=== PATIENT | male | born 1965 | race African-American/Black ===

== ENCOUNTER 2018-10-21 17:18 | Inpatient (IN) | payer OTHER ==
[2018-10-21 19:11] VITALS: BMI 24.0
--- NOTE | 2018-10-21 20:35 | HP ---
CIWA Score Nausea/Vomitin Muscle Tremors: 3 Anxiety: 3 Agitation: 3 Paroxysmal Sweats: 2 Orientation: 2-Disoriented Date<2 days Tacttile Disturbances: 0-None Auditory Disturbances: 0-None Visual Disturbances: 0-None Headache: 0-None Present CIWA-Ar Total Score: 16 - Admission Criteria OASAS Guidelines: Admission for Medically Managed Detox: Requires at least one of the followin. CIWA greater than 12 2. Seizures within the past 24 hours 3. Delirium tremens within the past 24 hours 4. Hallucinations within the past 24 hours 5. Acute intervention needed for co occurring medical disorder 6. Acute intervention needed for co occurring psychiatric disorder 7. Severe withdrawal that cannot be handled at a lower level of care (continued vomiting, continued diarrhea, abnormal vital signs) requiring intravenous medication and/or fluids 8. Admission [facility] Chief Complaint: Alcohol withdrawal symptoms Allergies/Adverse Reactions: Allergies Allergy/AdvReac Type Severity Reaction Status Date / Time Penicillins Allergy Severe Hives Verified 10/21/18 20:31 History of Present Illness: 53 years old male with a long history of alcohol dependence is seeking admission to detox. Patient has been in previous detox at [facility] and reports 3 years of sobriety. He has medical history of hypertension, anxiety and depression. He denies suicide attempt and suicidal ideation at this time. This his first admission to [facility] Exam Limitations: No Limitations - Ebola screening Have you traveled outside of the country in the last 21 days: No Have you had contact with anyone from an Ebola affected area: No Have you been sick,other than usual withdrawal symptoms: No Do you have a fever: No - Review of Systems Constitutional: Loss of Appetite, Malaise, Changes in sleep, Weakness EENT: reports: Nose Congestion Respiratory: reports: No Symptoms reported Cardiac: reports: No Symptoms Reported GI: reports: Poor Appetite, Poor Fluid Intake, Vomiting (x 1), Abdominal cramping : reports: No Symptoms Reported Musculoskeletal: reports: Joint Pain, Muscle Pain Integumentary: reports: Dryness, Flushing Neuro: reports: Tingling, Tremors Endocrine: reports: No Symptoms Reported Hematology: reports: No Symptoms Reported Psychiatric: reports: Mood/Affect Appropiate, Anxious, Depressed Other Systems: Reviewed and Negative Patient History - Patient Medical History Hx Anemia: No Hx Asthma: No Hx Chronic Obstructive Pulmonary Disease (COPD): No Hx Cancer: No Hx Cardiac Disorders: No Hx Congestive Heart Failure: No Hx Hypertension: Yes Hx Hypercholesterolemia: No Hx Pacemaker: No HX Cerebrovascular Accident: No Hx Seizures: No Hx Dementia: No Hx Diabetes: No Hx Gastrointestinal Disorders: No Hx Liver Disease: No Hx Genitourinary Disorders: No Hx Sexually Transmitted Disorders: No Hx Renal Disease (ESRD): No Hx Thyroid Disease: No Hx Human Immunodeficiency Virus (HIV): No (Negative 2014) Hx Hepatitis C: No Hx Depression: Yes (Remeron) Hx Suicide Attempt: No Hx Bipolar Disorder: Yes Hx Schizophrenia: Yes Other Medical History: Anxiety - Not on medi cation - Patient Surgical History Past Surgical History: No - PPD History Previous Implant?: Yes Documented Results: Negative w/o proof Implanted On Prior [facility] Admission?: No PPD to be Administered?: Yes - Reproductive History Patient is a Female of Child Bearing Age (11 -55 yrs old): No (MALE) - Smoking Cessation Smoking history: Current every day smoker Have you smoked in the past 12 months: Yes Aproximately how many cigarettes per day: 20 Hx Chewing Tobacco Use: No Initiated information on smoking cessation: Yes 'Breaking Loose' booklet given: 10/21/18 - Substance & Tx. History Hx Alcohol Use: Yes Hx Substance Use: Yes Substance Use Type: Alcohol, Cocaine Hx Substance Use Treatment: Yes ([facility] - Substances Abused Alcohol Route: Oral Frequency: Daily Amount used: VODKA - 2 PINTS, MALT LIQUOR 6 CANS Age of first use: 13 Date of Last Use: 10/21/18 Cocaine Route: Smoking Frequency: Daily Amount used: 8 BAGS Age of first use: 13 Date of Last Use: 10/20/18 Family Disease History - Family Disease History Family Disease History: Diabetes: Mother (), Heart Disease: Mother, Other: Father (HEPATITIS C - ) Admission Physical Exam [facility] - Vital Signs Vital Signs: Vital Signs - 24 hr 10/21/18 19:09 Temperature 99.1 F Pulse Rate 83 Respiratory 20 Rate Blood Pressure 131/72 - Physical General Appearance: Yes: Moderate Distress, Tremorous, Irritable, Anxious HEENTM: Yes: Nasal Congestion Respiratory: Yes: Lungs Clear, Normal Breath Sounds, No Respiratory Distress Neck: Yes: Supple Breast: Yes: Breast Exam Deferred Cardiology: Yes: Regular Rhythm, Regular Rate Abdominal: Yes: Normal Bowel Sounds Genitourinary: Yes: Within Normal Limits Back: Yes: Normal Inspection Musculoskeletal: Yes: Joint swelling, Muscle Pain Extremities: Yes: Tremors Neurological: Yes: Alert, Normal Mood/Affect Integumentary: Yes: Warm Lymphatic: Yes: Within Normal Limits - Diagnostic (1) Alcohol dependence with uncomplicated withdrawal Current Visit: Yes Status: Chronic (2) Nicotine dependence Current Visit: Yes Status: Chronic (3) Hypertension Current Visit: Yes Status: Chronic Qualifiers: Hypertension type: essential hypertension Qualified Code(s): I10 - Essential (primary) hypertension (4) Depression Current Visit: Yes Status: Chronic Qualifiers: Depression Type: unspecified Qualified Code(s): F32.9 - Major depressive disorder, single episode, unspecified (5) Anxiety Current Visit: Yes Status: Chronic Cleared for Admission S - Detox or Rehab [facility] Level of Care: Medically Managed Detox Regimen/Protocol: Librium S Breath Alcohol Content Breath Alcohol Content: 0 Urine Drug Screen - Results Drug Screen Negative: No Urine Drug Screen Results: DARLENE-Cocaine
[2018-10-21] MEDS ORDERED: MENTHOL/PHENOL 1 EACH UD MM PRN (20:50)
[2018-10-21] MEDS ORDERED: P-EPHED 60MG/TRIPROLIDI 2.5MG TABLET PO PRN (20:50)
[2018-10-21] MEDS ORDERED: chlordiazePOXIDE HCL 25 MG CAPSULE PO PRN (20:50)
[2018-10-21] MEDS ORDERED: MAG HYDROX/AL HYDROX/SIMETH 30 ML UNIT-DOSE CUP PO PRN (20:50)
[2018-10-21] MEDS ORDERED: MAGNESIUM CITRATE 300 ML BOTTLE PO PRN (20:50)
[2018-10-21] MEDS ORDERED: MAGNESIUM HYDROX 2400MG/30ML ORAL SUSPENSION 30 ML CUP PO PRN (20:50)
[2018-10-21] MEDS ORDERED: IBUPROFEN 400 MG TABLET (FP) PO PRN (20:50)
[2018-10-21] MEDS ORDERED: ACETAMINOPHEN 325 MG TABLET (FP) PO PRN (20:50)
[2018-10-21] MEDS ORDERED: LOPERAMIDE HCL 2 MG CAPSULE PO PRN (20:50)
[2018-10-21] MEDS ORDERED: NICOTINE POLACRILEX 2 MG GUM BC PRN (20:50)
[2018-10-21] MEDS ORDERED: guaiFENesin/D-METHORPHAN HB 10 ML UNIT-DOSE CUPS PO PRN (20:50)
[2018-10-21] MEDS ORDERED: MELATONIN 5 MG TABLETS PO PRN (22:00)
[2018-10-21] MEDS: chlordiazePOXIDE HCL 25 MG CAPSULE PO SCH (23:20)
[2018-10-21] MEDS: THIAMINE HCL 100 MG TABLET (FP) PO SCH (23:20)
[2018-10-22] MEDS: chlordiazePOXIDE HCL 25 MG CAPSULE PO SCH ×4 (05:46→22:08)
[2018-10-22] MEDS: PRENATAL VITAMINS W/ FOLIC ACID TABLET (FP) PO SCH (10:10)
[2018-10-22] MEDS: NICOTINE 14 MG/24 HOURS TOPICAL PATCH TD SCH (10:12)
[2018-10-22 10:58] LABS: ALBUMIN 3.6 g/dl (3.4-5.0); ALK PHOS 116 U/L (45-117); ANION GAP 7 MMOL/L (8-16); BILIRUBIN,TOTAL 0.4 mg/dL (0.2-1); BLOOD UREA NITROGEN 15 mg/dL (7-18); CALCIUM 8.9 mg/dL (8.5-10.1); CHLORIDE 101 mmol/L (98-107); CO2 29 mmol/L (21-32); CREATININE 1.1 mg/dL (0.55-1.3); GLUCOSE,RANDOM 134 mg/dL (74-106); POTASSIUM 3.8 mmol/L (3.5-5.1); SGOT/AST 217 U/L (15-37); SGPT/ALT 59 U/L (13-61); SODIUM 137 mmol/L (136-145); TOT PROT 8.2 g/dl (6.4-8.2)
[2018-10-22 11:13] LABS: HEMATOCRIT 38.7 % (35.4-49); HEMOGLOBIN 13.4 GM/dL (11.7-16.9); MCH 30.6 pg (25.7-33.7); MCHC 34.6 g/dl (32.0-35.9); MEAN CELL VOLUME 88.4 fl (80-96); MEAN PLT VOLUME 9.1 fl (7.5-11.1); PLATELET COUNT 319 K/MM3 (134-434); RBC 4.38 M/mm3 (4.00-5.60); RDW 15.5 % (11.9-15.9); WHITE BLOOD COUNT 4.7 K/mm3 (4.0-10.0)
--- NOTE | 2018-10-22 11:47 | PN ---
[facility] CIWA - CIWA Score Nausea/Vomitin-No Nausea/No Vomiting Muscle Tremors: 3 Anxiety: 3 Agitation: 3 Paroxysmal Sweats: 3 Orientation: 0-Oriented Tacttile Disturbances: 0-None Auditory Disturbances: 0-None Visual Disturbances: 0-None Headache: 1-Very Mild CIWA-Ar Total Score: 13 S Progress Note (SOAP) Subjective: agitation sweats shakes interrupted sleep body aches Objective: 10/22/18 11:46 Vital Signs Temperature 98.2 F 10/22/18 09:17 Pulse Rate 88 10/22/18 09:17 Respiratory Rate 16 10/22/18 09:17 Blood Pressure 153/90 10/22/18 09:17 O2 Sat by Pulse Oximetry (%) Laboratory Tests 10/22/18 10/22/18 07:00 07:00 WBC 4.7 RBC 4.38 Hgb 13.4 Hct 38.7 MCV 88.4 MCH 30.6 MCHC 34.6 RDW 15.5 Plt Count 319 MPV 9.1 Sodium 137 Potassium 3.8 Chloride 101 Carbon Dioxide 29 Anion Gap 7 L BUN 15 Creatinine 1.1 Creat Clearance w eGFR > 60 Random Glucose 134 H Calcium 8.9 Total Bilirubin 0.4 AST 217 H ALT 59 Alkaline Phosphatase 116 Total Protein 8.2 Albumin 3.6 labs noted elevated AST; tylenol d/c aaox3 lying in bed no acute distress Assessment: 10/22/18 11:47 withdrawal sx Plan: continue detox increase fluids
--- NOTE | 2018-10-22 15:25 | CONSULT ---
[facility] Psychiatric Consult - Data Date of interview: 10/22/18 Admission source: [facility] Identifying data: First admission to [facility] for this 53 y/o AA male seeking detoxification treatment for alcohol and cocaine dependence. Patient is , a father of one, homeless, unemployed and supported on SSI benefits. Substance Abuse History: Confirmed by the patient in this session. Details in current [facility] report : Smoking history: Current every day smoker. Have you smoked in the past 12 months: Yes. Aproximately how many cigarettes per day: 20. Hx Chewing Tobacco Use: No. Initiated information on smoking cessation: Yes. 'Breaking Loose' booklet given: 10/21/18. - Substance & Tx. History. Hx Alcohol Use: Yes. Hx Substance Use: Yes. Substance Use Type: Alcohol, Cocaine. Hx Substance Use Treatment: Yes ([facility]). - Substances Abused. Alcohol. Route: Oral. Frequency: Daily. Amount used: VODKA - 2 PINTS, MALT LIQUOR 6 CANS. Age of first use: 13. Date of Last Use: 10/21/18. Cocaine. Route: Smoking. Frequency: Daily. Amount used: 8 BAGS. Age of first use: 13. Date of Last Use: 10/20/18 Medical History: Hypertension. Psychiatric History: History of psychiatric hospitalizations. Patient admits to the diagnosis of Schizoaffective Disorder. Medicated with lithium + mirtazapine. Mr Burton indicates that he sees a private psychiatrist, in [facility], for medication management. Sub-optimal adherence reported. Patient endorses one suicide attempt via overdose with medications ([id number]). Physical/Sexual Abuse/Trauma History: Patient denies. Additional Comment: Urine Drug Screen Results: DARLENE-Cocaine. Noted. Mental Status Exam - Mental Status Exam Alert and Oriented to: Time, Place, Person Cognitive Function: Good Patient Appearance: Well Groomed Mood: Nervous, Withdrawn Affect: Mood Congruent Patient Behavior: Talkative, Cooperative Speech Pattern: Clear Voice Loudness: Normal Thought Process: Goal Oriented Thought Disorder: Not Present Hallucinations: Denies Suicidal Ideation: Denies Homicidal Ideation: Denies Insight/Judgement: Poor Sleep: Poorly, Difficulty falling asleep Appetite: Good Muscle strength/Tone: Normal Gait/Station: Normal Psychiatric Findings - Problem List ([place] 1, 2,3) (1) Alcohol dependence with uncomplicated withdrawal Current Visit: Yes Status: Acute (2) Cocaine dependence Current Visit: Yes Status: Chronic (3) Nicotine dependence Current Visit: Yes Status: Chronic (4) Substance induced mood disorder Current Visit: Yes Status: Chronic (5) Insomnia Current Visit: Yes Status: Chronic - Initial Treatment Plan Initial Treatment Plan: Psychoeducation. Sleep hygiene. Detoxification in progress. Remeron 7.5 mg po hs. Side effects/benefits discussed with the patient. [place] level : requested/now pending. Will follow. AA meetings. Observation.
[2018-10-22] MEDS: MIRTAZAPINE 15 MG TABLET (FP) PO SCH (22:08)
[2018-10-22] MEDS: THIAMINE HCL 100 MG TABLET (FP) PO SCH (22:08)
[2018-10-23] MEDS: chlordiazePOXIDE HCL 25 MG CAPSULE PO SCH ×3 (05:34→18:50)
[2018-10-23] MEDS: PRENATAL VITAMINS W/ FOLIC ACID TABLET (FP) PO SCH (10:19)
[2018-10-23] MEDS: NICOTINE 14 MG/24 HOURS TOPICAL PATCH TD SCH (10:20)
--- NOTE | 2018-10-23 11:31 | PN ---
S CIWA - CIWA Score Nausea/Vomitin Muscle Tremors: 2 Anxiety: 1-Mildly Anxious Agitation: 1-Slight > Activity Paroxysmal Sweats: 2 Orientation: 0-Oriented Tacttile Disturbances: 1-Very Mild Itch/Numbness Auditory Disturbances: 0-None Visual Disturbances: 0-None Headache: 0-None Present CIWA-Ar Total Score: 9 [facility] Progress Note (SOAP) Subjective: interrupted sleep, sweats, diarrhea Objective: 10/23/18 11:30 Vital Signs Temperature 98.4 F 10/23/18 09:05 Pulse Rate 73 10/23/18 09:05 Respiratory Rate 18 10/23/18 09:05 Blood Pressure 152/96 10/23/18 09:05 O2 Sat by Pulse Oximetry (%) Laboratory Tests 10/22/18 10/22/18 10/22/18 07:00 07:00 07:00 WBC 4.7 RBC 4.38 Hgb 13.4 Hct 38.7 MCV 88.4 MCH 30.6 MCHC 34.6 RDW 15.5 Plt Count 319 MPV 9.1 Sodium 137 Potassium 3.8 Chloride 101 Carbon Dioxide 29 Anion Gap 7 L BUN 15 Creatinine 1.1 Creat Clearance w eGFR > 60 Random Glucose 134 H Calcium 8.9 Total Bilirubin 0.4 AST 217 H ALT 59 Alkaline Phosphatase 116 Total Protein 8.2 Albumin 3.6 RPR Titer Nonreactive pt aox3 lying in bed Assessment: 10/23/18 11:30 withdrawal sx;s elevated ast glucose 134 ekg rbbb- no previous study 10/23/18 11:33 10/23/18 11:33 Plan: cont detox increase fluids [id number] bgm
--- NOTE | 2018-10-23 13:36 | EKG ---
Test Reason : Blood Pressure : / mmHG Vent. Rate : 074 BPM Atrial Rate : 074 BPM P-R Int : 146 ms QRS Dur : 148 ms QT Int : 430 ms P-R-T Axes : 033 103 036 degrees QTc Int : 477 ms NORMAL SINUS RHYTHM RIGHT BUNDLE BRANCH BLOCK ABNORMAL ECG NO PREVIOUS ECGS AVAILABLE Confirmed by MOLINA BRYANT, DALE ([id number]) on 10/23/2018 1:36:16 PM Referred By: Confirmed By:DALE AUGUSTE MD
[2018-10-23] MEDS: MIRTAZAPINE 15 MG TABLET (FP) PO SCH (22:18)
[2018-10-23] MEDS: THIAMINE HCL 100 MG TABLET (FP) PO SCH (22:19)
[2018-10-23] MEDS: chlordiazePOXIDE 5 MG CAPSULE PO SCH (22:19)
[2018-10-24] MEDS: chlordiazePOXIDE 5 MG CAPSULE PO SCH ×3 (05:44→17:47)
[2018-10-24] MEDS: PRENATAL VITAMINS W/ FOLIC ACID TABLET (FP) PO SCH (10:41)
[2018-10-24] MEDS: NICOTINE 14 MG/24 HOURS TOPICAL PATCH TD SCH (10:43)
--- NOTE | 2018-10-24 11:20 | PN ---
[facility] Progress Note (SOAP) Subjective: sweats tired interrupted sleep Objective: 10/24/18 11:16 Vital Signs Temperature 98.2 F 10/24/18 09:12 Pulse Rate 85 10/24/18 09:12 Respiratory Rate 16 10/24/18 09:12 Blood Pressure 157/104 H 10/24/18 09:12 O2 Sat by Pulse Oximetry (%) BP rechecked it is 148/96. pt states he was on BP medication and hasn't been taking it however told pt a low dose of htn medication will be started during his stay to manage his HTN. pt in agreement Assessment: 10/24/18 11:19 mild withdrawal sx Plan: continue detox HCTZ 12.5mg bid ordered d/c in am
[2018-10-24] MEDS: HYDROCHLOROTHIAZIDE 12.5 MG CAPSULE (FP) PO SCH ×2 (12:18→22:46)
[2018-10-24] MEDS: MIRTAZAPINE 15 MG TABLET (FP) PO SCH (22:45)
[2018-10-24] MEDS: chlordiazePOXIDE HCL 10 MG CAPSULE PO SCH (22:45)
[2018-10-24] MEDS: THIAMINE HCL 100 MG TABLET (FP) PO SCH (22:46)
[2018-10-25] MEDS: chlordiazePOXIDE HCL 10 MG CAPSULE PO SCH (05:46)
--- NOTE | 2018-10-25 08:47 | PN ---
[facility] Progress Note (SOAP) Subjective: i'm better Objective: 10/25/18 08:44 Vital Signs Temperature 99.3 F 10/25/18 06:00 Pulse Rate 89 10/25/18 06:00 Respiratory Rate 18 10/25/18 06:00 Blood Pressure 159/94 10/25/18 06:00 O2 Sat by Pulse Oximetry (%) Laboratory Tests 10/22/18 10/22/18 10/22/18 07:00 07:00 07:00 WBC 4.7 RBC 4.38 Hgb 13.4 Hct 38.7 MCV 88.4 MCH 30.6 MCHC 34.6 RDW 15.5 Plt Count 319 MPV 9.1 Sodium 137 Potassium 3.8 Chloride 101 Carbon Dioxide 29 Anion Gap 7 L BUN 15 Creatinine 1.1 Creat Clearance w eGFR > 60 Random Glucose 134 H Hemoglobin A1c % Calcium 8.9 Total Bilirubin 0.4 AST 217 H ALT 59 Alkaline Phosphatase 116 Total Protein 8.2 Albumin 3.6 [place] RPR Titer Nonreactive 10/23/18 10/24/18 06:00 07:30 WBC RBC Hgb Hct MCV MCH MCHC RDW Plt Count MPV Sodium Potassium Chloride Carbon Dioxide Anion Gap BUN Creatinine Creat Clearance w eGFR Random Glucose Hemoglobin A1c % 6.5 H Calcium Total Bilirubin AST ALT Alkaline Phosphatase Total Protein Albumin [place] 0 L RPR Titer pt aox3in nad ambulating Assessment: 10/25/18 08:45 detox completed dm htn Plan: d/c today cont fluids
--- NOTE | 2018-10-25 08:48 | DS ---
[facility] Detox Discharge Summary Admission Date: 10/21/18 Discharge Date: 10/25/18 - History Present History: Alcohol Dependence, Cocaine Dependence - Physical Exam Results Vital Signs: Vital Signs Temperature 99.3 F 10/25/18 06:00 Pulse Rate 89 10/25/18 06:00 Respiratory Rate 18 10/25/18 06:00 Blood Pressure 159/94 10/25/18 06:00 O2 Sat by Pulse Oximetry (%) - Treatment Hospital Course: Detox Protocol Followed, Detoxed Safely, Responded well, Discharged Condition Good - Medication Discharge Medications: Ambulatory Orders [place] Carbonate [Eskalith -] 150 mg PO BID 10/21/18 Mirtazapine [Remeron -] 7.5 mg PO DAILY 10/21/18 Hydrochlorothiazide [Hctz -] 12.5 mg PO BID 30 Days #60 cap 10/25/18 - Diagnosis (1) Alcohol dependence with uncomplicated withdrawal Current Visit: Yes Status: Chronic (2) Cocaine dependence Current Visit: Yes Status: Chronic (3) Depression Current Visit: Yes Status: Chronic Qualifiers: Depression Type: unspecified Qualified Code(s): F32.9 - Major depressive disorder, single episode, unspecified (4) Hypertension Current Visit: Yes Status: Chronic Qualifiers: Hypertension type: essential hypertension Qualified Code(s): I10 - Essential (primary) hypertension (5) Nicotine dependence Current Visit: Yes Status: Chronic - AMA Did Patient Leave Against Medical Advice: No
[2018-10-25 09:01] VITALS: BP 156/87; PULSE 95; TEMP 99
== END 2018-10-25 09:08 | disposition home or self-care (01) | DRG 774 ==
LOC: YASAS 17:18 → Y6N 22:41
PROC: HZ2ZZZZ Detoxification Services for Substance Abuse Treatment (ICD-10-PCS; principal; 2018-10-21)
DX: F10.230 Alcohol dependence with withdrawal, uncomplicated (principal); F14.20 Cocaine dependence, uncomplicated; F17.210 Nicotine dependence, cigarettes, uncomplicated; F32.9 Major depressive disorder, single episode, unspecified; F19.24 Other psychoactive substance dependence with psychoactive substance-induced mood disorder; F41.9 Anxiety disorder, unspecified; I10 Essential (primary) hypertension; E11.9 Type 2 diabetes mellitus without complications; R74.0 Nonspecific elevation of levels of transaminase and lactic acid dehydrogenase [LDH]; G47.00 Insomnia, unspecified; Z88.0 Allergy status to penicillin; Z59.0 Homelessness
CPT/HCPCS: 36415; 80053; 80178; 83036; 85027; 86593; 93005; 93010